=== PATIENT | male | born 1985 | race Caucasian/White ===

== ENCOUNTER 2021-11-04 12:20 | Emergency (ER) | payer SELFPAY ==
[~2021-11-04] VITALS: Ht 167.6 cm; Wt 68.0 kg
--- NOTE | 2021-11-04 12:20 | NUR ---
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
--- NOTE | 2021-11-04 13:00 | NUR ---
SUE TO BE SEEN BY
--- NOTE | 2021-11-04 13:23 | NUR ---
SEEN BY DR. NASSAR
--- NOTE | 2021-11-04 13:43 | NUR ---
NILAM ADAN SENT TO LAB
--- NOTE | 2021-11-04 13:58 | NUR ---
[address] [employer] OFF[employer] AT BED SIDE OFFECER DAMIENER # [id number] AND 2 [place] OFFICER DAVEY # [id number] [facility]
--- NOTE | 2021-11-04 15:17 | NUR ---
Medically Cleared for Booking Patient discharged to [employer] custody Escorted by Officer Fillinger in stable condition. Written and verbal after care instructions given.
[2021-11-04 15:18] VITALS: BP 125/80
== END 2021-11-04 15:20 ==
LOC: ER 12:24
DX: S09.90XA Unspecified injury of head, initial encounter (principal); X99.0XXA Assault by sharp glass, initial encounter; Y92.89 Other specified places as the place of occurrence of the external cause; J45.909 Unspecified asthma, uncomplicated; Z89.511 Acquired absence of right leg below knee; E11.9 Type 2 diabetes mellitus without complications; F10.129 Alcohol abuse with intoxication, unspecified
CPT/HCPCS: 70450; 87426; 99284; C9803